=== PATIENT | female | born 1955 | race Two or more races ===

== ENCOUNTER → 2024-02-11 | Outpatient (CLI) | payer MEDICAID ==
[~2024-02-11] MED LIST: ALBUTEROL SULF 2.5 MG/0.5ML(0.5%) NEB SOLN ONE
== END | disposition home or self-care (01) ==
LOC: RT 14:40
PROVIDERS: ATTEND Internal Medicine Pulmonary Disease
DX: R06.02 Shortness of breath (principal); R05.3 Chronic cough
CPT/HCPCS: 94060; 94727; 94729

== ENCOUNTER → 2024-11-28 | Outpatient (CLI) | payer MEDICAID ==
[~2024-11-28] VITALS: Ht 149.9 cm; Wt 61.7 kg
[2024-11-28] MEDS: REGADENOSON 0.4 MG/5 ML SYRG IV ONE ×2 (11:45)
--- NOTE | 2024-11-30 12:45 | DVHSR ---
APPROVED REPORT Exam: Nuclear Stress Test Indication: Chest pain Stress Tech: Rashmi Locke Ht: 4 ft 11 in Wt: 136 lbs BSA: 1.57 m2 BMI: 27.46 Medical History Medical History: COPD, HTN, FORMER SMOKER, LUNG FIBROSIS Allergies: ASPIRIN Stress Test Details Stress Test: Pharmacologic stress testing performed using 0.4 mg of regadenoson per 5 mL given IV ov er 10 seconds. Reason for pharmacologic stress test: CP. HR Resting HR: 82 bpmMax Heart Rate (APMHR): 151.750907 bpm Max HR Achieved: 110 bpmTarget HR (85% APMHR): 128.269470 bpm % of APMHR: 72.85 Recovery HR: 97 bpm BP Resting BP: 140/81 mmHg Recovery BP: 133/73 mmHg ECG Resting ECG: Sinus Rhythm Clinical Reason for Termination: Completed protocol Nurse Comments Received patient from Nuclear Medicine. Patient is A&O x4 and on RA. FOR VS please refer back to st ress test assessment documentation. Patient is connected to hall monitor. See cardio-neuro proce dural notes for addtional details. PIV flushes well. Reviewed POC and patient verbalizes understand ing and consents to test. Lexiscan stress test performed per protocol. office technologist administered the Cardiolite. Pat ient tolerated well and vitals returned to baseline. Transferred to Nuclear Medicine via wheelchair with tech in stable condition. Stress ECG Conclusion The Quality of the study is good. There is homogeneous radiotracer uptake in all segments of the LV myocardium on both stress and rest SPECT image. The left ventricular systolic function is preserved with a measured ejection fraction of 82% which devyn lopez is an overestimation. This is a normal myocardial perfusion scan. NM EXAM: Myocardial Perfusion REST/STRESS Imaging Protocol: Rest Tc-99m/Stress Tc-99m 1 day Resting Data Rest SPECT myocardial perfusion imaging was performed in supine position 60 minutes following the int ravenous injection of 13 mCi of Tc-99m Sestamibi. Time of rest injection: 1030 Time of rest imagin Administration Route: IV Administration Site: Left Arm Pharmacologic Stress Pharmacologic stress test was performed by injecting Regadenoson 0.4 mg IV push followed by the intra venous injection of 30 mCi of Tc-99m Sestamibi. Time of stress injection: 1146 Time of stress imagin Administration Route: IV Administration Site: Left Arm Gated Stress SPECT was performed 60 minutes after stress injection. The images were gated to evaluate regional wall motion and calculate left ventricular ejection fracti on. Stress only was performed in the Supine position. Study Data Post stress, the left ventricular ejection was 88%.. Nuclear Conclusion ECG Findings: negative for ischemia Clinical Findings: negative for ischemia Nuclear Findings: negative for ischemia The Quality of the study is good. There is homogeneous radiotracer uptake in all segments of the LV myocardium on both stress and rest SPECT image. The left ventricular systolic function is preserved with a measured ejection fraction of 82% which devyn lopez is an overestimation. This is a normal myocardial perfusion scan.
== END | disposition home or self-care (01) ==
LOC: XYW 10:04
PROVIDERS: ATTEND Internal Medicine
DX: R07.9 Chest pain, unspecified (principal); I10 Essential (primary) hypertension; J44.9 Chronic obstructive pulmonary disease, unspecified; Z88.6 Allergy status to analgesic agent
CPT/HCPCS: 78452; 93017; A9500; J2785